=== PATIENT | female | born 1995 | race Caucasian/White ===

== ENCOUNTER 2017-04-18 21:01 | Outpatient (CLI) | payer MEDICAID, OTHER | END 2017-04-18 21:02 | disposition critical access hospital (66) | LOC: EMS 21:01 | PROVIDERS: ATTEND Surgery | DX: T76.21XA Adult sexual abuse, suspected, initial encounter (principal) | CPT/HCPCS: A0425; A0429 ==

== ENCOUNTER 2017-04-18 21:13 | Emergency (ER) | payer OTHER, MEDICAID ==
[2017-04-18 22:02] LABS: BILIRUBIN,URINE NEGATIVE (NEGATIVE)
[2017-04-18 22:06] LABS: HCG UR QUAL NEGATIVE; UA CHARGE (STRIP ONLY) YES; UR CULTURE IF IND NOT INDICATED
[2017-04-18] MEDS ORDERED: cefTRIAXone 1 GM VIAL IM STA (22:24)
[2017-04-18] MEDS ORDERED: AZITHROMYCIN 250 MG TABLET PO STA (22:25)
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
[2017-04-18] MEDS ORDERED: AZITHROMYCIN 250 MG TABLET PO ONE (22:59)
[2017-04-18] MEDS ORDERED: cefTRIAXone 250 MG VIAL ONE (22:59)
[2017-04-18] MEDS ORDERED: WATER FOR INJECTION,STERILE 10 ML ONE (23:03)
[2017-04-19] MEDS ORDERED: cefTRIAXone 250 MG VIAL IM STA (00:14)
[2017-04-19] MEDS ORDERED: ULIPRISTAL ACETATE 30 MG TABLET PO STA (01:04)
[2017-04-19] MEDS ORDERED: ULIPRISTAL ACETATE 30 MG TABLET PO ONE (01:04)
[2017-04-19 01:06] VITALS: BP 91/50
== END 2017-04-19 01:16 | disposition home or self-care (01) ==
LOC: EDUNIT# → ED 21:13
DX: T76.21XA Adult sexual abuse, suspected, initial encounter (principal); S80.211A Abrasion, right knee, initial encounter; S70.312A Abrasion, left thigh, initial encounter; S80.812A Abrasion, left lower leg, initial encounter
CPT/HCPCS: 0133C; 81003; 81025; 96372; 99283; A9270; 81001; 87086

== ENCOUNTER 2020-02-15 23:05 | Emergency (ER) | payer MEDICAID, OTHER ==
--- NOTE | 2020-02-15 23:23 | ED Physician Documentation ---
History of Present Illness - Stated complaint Stated Complaint: BK PX - Chief complaint Chief Complaint: Back Pain - Additonal information Additional information: This is a 24-year-old female with a history of a past thoracic spine fusion, who presents with lower back pain. Patient states she was walking [place] uneven surface on the beach earlier today and then did some crunches on hard ground in her lower lumbar spine. Pain does not radiate down her legs. She denies any anterior abdominal pain, no fever, no direct trauma to the region. No numbness or weakness. No dysuria. She states that she sometimes will get flareups of Similar back pain, this is been ongoing since her past fusion. Review of Systems Constitutional: denies: Fever Cardiac: denies: Chest pain / pressure Respiratory: denies: Dyspnea GI: denies: Abdominal Pain : denies: Dysuria Musculoskeletal: reports: Back pain Neurologic: denies: Generalized weakness, Focal weakness, Numbness PD PAST MEDICAL HISTORY - Past Medical History Psych: Depression - Past Surgical History Ortho: Other - Present Medications Home Medications: Ambulatory Orders Medication Instructions Recorded Confirmed oxyCODONE [Roxicodone] 2.5 mg PO Q6HR PRN 02/15/20 02/15/20 Cyclobenzaprine [Flexeril] 10 mg PO TID PRN 6 Days #20 tablet 02/16/20 - Allergies Allergies/Adverse Reactions: Allergies Allergy/AdvReac Type Severity Reaction Status Date / Time No Known Drug Allergies Allergy Verified 04/18/17 22:31 - Social History Does the pt smoke?: No Smoking Status: Never smoker Does the pt drink ETOH?: Yes Does the pt have substance abuse?: No - Immunizations Immunizations are current?: Yes PD ED PE NORMAL - Vitals Vital signs reviewed: Yes - General General: Alert and oriented X 3, No acute distress - HEENT HEENT: PERRL - Neck Neck: Supple, no meningeal sign - Cardiac Cardiac: RRR, No murmur - Respiratory Respiratory: No respiratory distress - Abdomen Abdomen: Non distended - Back Back: Other (Well-healed thoracic midline incisional scar. There is tenderness in the paraspinous muscles in the lower lumbar spine. No skin changes, erythema or swelling in this region. Negative cross straight leg raise test and negative straight leg raise test bilaterally.) - Derm Derm: Warm and dry - Extremities Extremities: No deformity - Neuro Neuro: Alert and oriented X 3, No motor deficit, No sensory deficit, Other (5 out of 5 strength ankle dorsiflexion and plantarflexion, hip flexion bilaterally. Sensation intact over lower extremities) - Psych Psych: Normal mood, Normal affect Results - Vitals Vitals: Vital Signs - 24 hr 02/15/20 23:05 Temperature 36.6 C Heart Rate 58 L Respiratory 16 Rate Blood Pressure 116/70 O2 Saturation 97 Oxygen O2 Source Room air - Labs Labs: Laboratory Tests 02/15/20 23:45 Urine Color YELLOW Urine Clarity CLEAR Urine pH 7.0 Ur Specific [place] 1.015 Urine Protein NEGATIVE Urine Glucose (UA) NEGATIVE Urine Ketones NEGATIVE Urine Occult Blood NEGATIVE Urine Nitrite NEGATIVE Urine Bilirubin NEGATIVE Urine Urobilinogen 0.2 (NORMAL) Ur Leukocyte Esterase NEGATIVE Ur Microscopic Review NOT INDICATED Urine HCG, Qual NEGATIVE PD MEDICAL DECISION MAKING - ED course Complexity details: considered differential (Musculoskeletal pain, pyelonephritis, ) ED course: Patient is well-appearing on arrival. She has localized tenderness mostly in the paraspinous muscles of the lower back. She has no red flag symptoms: no urinary incontinence or retention, no fever, no weakness or numbness, no trauma to the back. She does not appear to require any imaging today. She was given cyclobenzaprine as well as Tylenol, followed by toradol and one dose of oxycodone. We did obtain a urinalysis which was negative for infection. HCG negative. I discussed supportive care, outpatient follow-up, and return precautions with the patient, who was in agreement and was discharged home in the care of family. She is ambulatory and well-appearing on discharge. Departure - Departure Disposition: 01 Home, Self Care Clinical Impression: Back pain Qualifiers: Back pain location: low back pain Chronicity: acute Back pain laterality: midline Sciatica presence: without sciatica Qualified Code(s): M54.5 - Low back pain Condition: Good Instructions: ED Neck Back Pain General Prescriptions: Cyclobenzaprine [Flexeril] 10 mg PO TID PRN 6 Days #20 tablet PRN Reason: Spasms Comments: For your back pain, please try 600 mg of ibuprofen every 6 hours, 650 mg of Tylenol every 6 hours, and the cyclobenzaprine as prescribed. Please avoid strenuous activities or twisting or heavy lifting which can make your pain worse, but it is okay to perform light activities such as walking, this oftentimes speeds recovery. If you are having numbness or weakness in your legs, fever, difficulty urinating, significantly worsening pain, or any other concerning symptoms, return to the emergency department.
[2020-02-15] MEDS: ACETAMINOPHEN 500 MG TABLET PO STA (23:31)
[2020-02-15] MEDS: CYCLOBENZAPRINE 10 MG TABLET PO STA (23:31)
[2020-02-15 23:52] LABS: BILIRUBIN,URINE NEGATIVE (NEGATIVE); GLUCOSE, URINE (UA) NEGATIVE (NEGATIVE); KETONES,URINE (UA) NEGATIVE (NEGATIVE); LEUKOCYTE ESTERASE, URINE NEGATIVE (NEGATIVE); NITRITE,URINE NEGATIVE (NEGATIVE); OCCULT BLOOD,URINE NEGATIVE (NEGATIVE); PROTEIN,URINE NEGATIVE (NEGATIVE); UROBILINOGEN,URINE 0.2 (NORMAL) E.U./dL (NORMAL)
[2020-02-15 23:53] LABS: CLARITY,URINE CLEAR (CLEAR); HCG UR QUAL NEGATIVE
[2020-02-16] MEDS: KETOROLAC 60 MG/2 ML VIAL IM STA (00:05)
[2020-02-16] MEDS: oxyCODONE 5 MG TABLET PO STA (00:05)
[2020-02-16 00:39] VITALS: BP 132/77
== END 2020-02-16 00:39 | disposition home or self-care (01) ==
LOC: ED 23:05
DX: M54.5 Low back pain (principal)
CPT/HCPCS: 81003; 81025; 96372; 99283; 99284; A9270; 81001